=== PATIENT | female | born 1970 | race Caucasian/White ===

== ENCOUNTER 2019-07-25 18:06 | Emergency (ER) | payer OTHER ==
[2019-07-25 18:17] VITALS: TEMP 98.3; BMI 29.9
--- NOTE | 2019-07-25 20:03 | PDOC ---
History of Present Illness - General Chief Complaint: Pain Stated Complaint: L BACK PAIN Time Seen by Provider: 07/25/19 19:33 - History of Present Illness Initial Comments: 07/25/19 19:59 CHIEF COMPLAINT: urinary symptoms, back pain, left calf pain HISTORY OF PRESENT ILLNESS: 48 yo F with hx of prediabetes presents to ED with low back pain and left calf pain. Patient reports that the pain to her back started approximately 1 week ago but today the pain became debilitating. She reports severe pain to b/l inguinal areas and burning sensation/itchinsg when urinating. Patient also c/of of L calf pain "for four years" but noticed a "new bump" to the back of her calf recently. Denies hematuria, fever, chills, vomiting, diarrhea. No recent travel or sick contacts. PAST MEDICAL HISTORY: Denies past medical history FAMILY HISTORY: Denies SOCIAL HISTORY: Denies tobacco, alcohol, illicit drug use. SURGICAL HISTORY: Denies ALLERGIES: No known drug allergies REVIEW OF SYSTEMS General/Constitutional: Denies fever or chills. Denies weakness, weight change. HEENT: Denies change in vision. Denies ear pain or discharge. Denies sore throat. Cardiovascular: Denies chest pain or shortness of breath. Respiratory: Denies cough, wheezing, or hemoptysis. Gastrointestinal: Denies nausea, vomiting, diarrhea or constipation. Denies rectal bleeding. Genitourinary: Dysuria, frequency, suprapubic and inguinal pain. Musculoskeletal: B/l lower back pain. Skin and breasts: Denies rash or easy bruising. Neurologic: Denies headache, vertigo, loss of consciousness, or loss of sensation. Psychiatric: Denies depression or anxiety. PHYSICAL EXAM General Appearance: Well-appearing, appropriately dressed. No apparent distress , no intoxication. HEENT: EOMI, PERRLA, normal ENT inspection, normal voice, TMs normal, pharynx normal. No conjunctival pallor. No photophobia, scleral icterus. Neck: Supple. Trachea midline. No tenderness, rigidity, carotid bruit, stridor , lymphadenopathy, or thyromegaly. Respiratory/Chest: Lungs CTAB. No shortness of breath, chest tenderness, respiratory distress, accessory muscle use. No crackles, rales, rhonchi, stridor , wheezing, dullness Cardiovascular: RRR. S1, S2. No JVD, murmur, bradycardia, tachycardia. Vascular Pulses: Dorsalis-Pedis (R): 2+, Dorsalis-Pedis (L): 2+ Gastrointestinal/Abdominal: Normal bowel sounds. Abdomen soft, non-distended. No tenderness or rebound tenderness. No organomegaly, pulsatile mass, guarding , hernia, hepatomegaly, splenomegaly. Musculoskeletal/Extremities: Tenderness to paravertebral muscles L2-L5. Hematoma to L posterior calf with TTP. Normal inspection. FROM of all extremities, normal capillary refill. Pelvis Stable. No CVA tenderness. No tenderness to extremities, pedal edema, swelling, erythema or deformity. Integumentary: Appropriate color, dry, warm. No cyanosis, erythema, jaundice or rash Neurologic: crystal report developer II-XII intact. Fully oriented, alert. Appropriate mood/affect. Motor strength 5/5. No appreciable EOM palsy, facial droop or sensory deficit. 07/26/19 00:17 Past History - Past Medical History Allergies/Adverse Reactions: Allergies Allergy/AdvReac Type Severity Reaction Status Date / Time No Known Allergies Allergy Verified 07/25/19 18:15 Home Medications: Ambulatory Orders Cyclobenzaprine HCl 5 mg PO HS #10 tablet 07/25/19 Diclofenac Sodium 75 mg PO BID #20 tablet. 07/25/19 Fluconazole [Diflucan] 150 mg PO ONCE #1 tablet 07/25/19 Anemia: Yes COPD: No - Immunization History Immunization Up to Date: Yes - Psycho Social/Smoking Cessation Hx Smoking History: Never smoked Hx Alcohol Use: No Drug/Substance Use Hx: No *Physical Exam - Vital Signs Last Vital Signs Temp Pulse Resp BP Pulse Ox 98.3 F 67 16 126/70 97 07/25/19 18:15 07/25/19 18:15 07/25/19 18:15 07/25/19 18:15 07/25/19 18:15 ED Treatment Course - LABORATORY CBC & Chemistry Diagram: 07/25/19 21:19 07/25/19 21:19 - RADIOLOGY Radiology Studies Ordered: Category Date Time Status DUPLEX VASCUL US-1 LEG [US] Stat Ultrasound 07/25/19 19:59 Ordered Medical Decision Making - Medical Decision Making 07/25/19 22:58 48 yo F with hx of prediabetes presents to ED with low back pain and left calf pain. -labs, urine -duplex US r/o dvt duplex US negative for DVT. UA negative for UTI, given burning/itching sensation to groin and vagina will treat for vaginal yeast infection. NSAIDS, flexeril for back pain diflucan rx sent to pharm. Discharge - Discharge Information Problems reviewed: Yes Clinical Impression/Diagnosis: Yeast infection of the vagina Back pain Qualifiers: Back pain location: low back pain Chronicity: acute Back pain laterality: bilateral Sciatica presence: with sciatica Sciatica laterality: bilateral sciatica Qualified Code(s): M54.42 - Lumbago with sciatica, left side Condition: Stable Disposition: HOME - Admission No - Additional Discharge Information Prescriptions: Cyclobenzaprine HCl 5 mg PO HS #10 tablet Diclofenac Sodium 75 mg PO BID #20 tablet. Fluconazole [Diflucan] 150 mg PO ONCE #1 tablet - Follow up/Referral Referrals: Garland Alexander DO [Staff Physician] - - Patient Discharge Instructions Patient Printed Discharge Instructions: DI for Vaginal Yeast Infection, DI for Back Pain With Sciatica Additional Instructions: Please take medications as prescribed. Follow up with orthopedics if symptoms persist past 10 days. If you develop inability to control your urinary or bowel functions, are unable to walk, have loss of sensation to your legs, or you develop any new or worsening symptoms, please return to the ER. - Post Discharge Activity
[2019-07-25] MEDS ORDERED: KETOROLAC TROMETHAMINE 30 MG/1 ML VIAL IVPUSH ONE (20:04)
[2019-07-25] MEDS ORDERED: KETOROLAC TROMETHAMINE 30 MG/1 ML VIAL ONE (21:08)
[2019-07-25 21:29] LABS: BASO % 1.1 % (0-2.0); EOS % 7.3 % (0-4.5); HEMATOCRIT 37.6 % (32.4-45.2); HEMOGLOBIN 12.7 GM/dL (10.7-15.3); LYMPH % 34.3 % (8-40); MCH 29.3 pg (25.7-33.7); MCHC 33.8 g/dl (32.0-36.0); MEAN CELL VOLUME 86.8 fl (80-96); MEAN PLT VOLUME 7.8 fl (7.5-11.1); MONO % 5.6 % (3.8-10.2); NEUT % 51.7 % (42.8-82.8); PLATELET COUNT 340 K/MM3 (134-434); RBC 4.33 M/mm3 (3.60-5.2); RDW 13.1 % (11.6-15.6); WHITE BLOOD COUNT 8.8 K/mm3 (4.0-10.0)
[2019-07-25 21:58] LABS: ALBUMIN 3.6 g/dl (3.4-5.0); BILIRUBIN,TOTAL 0.2 mg/dL (0.2-1); CALCIUM 8.7 mg/dL (8.5-10.1); CREATININE 0.7 mg/dL (0.55-1.3); POTASSIUM 4.4 mmol/L (3.5-5.1); TOT PROT 7.4 g/dl (6.4-8.2)
[2019-07-25 22:49] LABS: PH,URINE 5.5 (5.0-8.0); URINE APPEARANCE CLEAR; URINE BILIRUBIN NEGATIVE (NEGATIVE); URINE COLOR YELLOW; URINE GLUCOSE (UA) NEGATIVE (NEGATIVE); URINE KETONE NEGATIVE (NEGATIVE); URINE LEUK ESTERASE NEGATIVE (NEGATIVE); URINE NITRITE NEGATIVE (NEGATIVE); URINE PROTEIN NEGATIVE (NEGATIVE); URINE UROBILINOGEN 0.2 mg/dL (0.2-1.0)
[2019-07-25 23:31] VITALS: BP 127/78; PULSE 63
== END 2019-07-25 23:10 | disposition home or self-care (01) ==
LOC: JER 18:06
PROC: 3E0333Z Introduction of Anti-inflammatory into Peripheral Vein, Percutaneous Approach (ICD-10-PCS; principal; 2019-07-25)
DX: B37.3 Candidiasis of vulva and vagina (principal); M54.42 Lumbago with sciatica, left side; S86.112A Strain of other muscle(s) and tendon(s) of posterior muscle group at lower leg level, left leg, initial encounter; X58.XXXA Exposure to other specified factors, initial encounter; Y93.89 Activity, other specified; Y92.89 Other specified places as the place of occurrence of the external cause; Y99.8 Other external cause status
CPT/HCPCS: 36415; 80053; 81003; 85025; 87086; 93971-TC; 99283-25

== ENCOUNTER 2023-02-10 20:53 | Emergency (ER) | payer OTHER ==
[2023-02-10 20:57] VITALS: BP 132/86; PULSE 74; RESP 18; TEMP 97.8; BMI 29.9
[2023-02-10] MEDS ORDERED: ACETAMINOPHEN 500 MG TABLET (FP) PO ONE (22:07)
[2023-02-10] MEDS ORDERED: ACETAMINOPHEN 500 MG TABLET (FP) ONE (22:08)
[2023-02-10] MEDS ORDERED: AMOX TR/POT CLAV 875MG/125MG TABLETS (FP) PO ONE (22:57)
[2023-02-10] MEDS ORDERED: DIPHTH,PERTUSS(ACELL),TET 0.5 ML DISP.SYRIN IM ONE ×2 (22:57→23:04)
[2023-02-10] MEDS ORDERED: AMOX TR/POT CLAV 875MG/125MG TABLETS (FP) ONE (23:03)
== END 2023-02-10 23:11 | disposition home or self-care (01) ==
LOC: JERFT 20:53
PROC: 3E0234Z Introduction of Serum, Toxoid and Vaccine into Muscle, Percutaneous Approach (ICD-10-PCS; principal; 2023-02-10)
DX: H92.02 Otalgia, left ear (principal); S01.312A Laceration without foreign body of left ear, initial encounter; W45.8XXA Other foreign body or object entering through skin, initial encounter
CPT/HCPCS: 90471; 90715; 99283-25